=== PATIENT | female | born 1985 | race Caucasian/White ===

== ENCOUNTER 2017-08-04 11:54 | Emergency (ER) | payer SELFPAY ==
[~2017-08-04] VITALS: Ht 167.6 cm; Wt 62.0 kg
[2017-08-04 12:02] VITALS: BP 98/57; PULSE 83; RESP 16; TEMP 98.2; O2SAT 99
[2017-08-04] MEDS ORDERED: KEPP10002 PO (12:16)
[2017-08-04] MEDS ORDERED: levETIRAcetam 500 MG TAB PO ONE (13:00)
[2017-08-04] MEDS ORDERED: ACETAMINOPHEN/HYDROcodone 325 MG/5 MG TAB PO ONE (13:00)
[2017-08-04] MEDS ORDERED: LORazepam 0.5 MG TAB PO ONE (13:00)
[2017-08-04] MEDS ORDERED: TETANUS/DIPHTHERIA TOXOID ADULT 0.5 ML VIAL IM ONE (13:00)
[2017-08-04] MEDS ORDERED: levETIRAcetam INJ 500 MG in SODIUM CHLORIDE 0.9% INJ 100 ML IV ONE (13:00)
--- NOTE | 2017-08-04 13:04 | PD ---
HPI Chief Complaint: Seizure Time Seen by Provider: 12:53 Travel History International Travel<30 days: No Contact w/Intl Traveler<30days: No Traveled to known affect area: No History of Present Illness HPI This patient has history of epilepsy and takes Keppra. She reports compliance. She reports having a seizure at approximately 1 AM last night. She had a second seizure at around 10 AM today. She hit her chin during the seizure but no head injury otherwise. Her neck feels fine. She denies neurologic complaint. She no longer follows with the neurologist and her primary physician maintains her Keppra. Denies drug abuse. No fever. Symptoms severity is moderate. No alleviating factors. No exacerbating factors. PFSH Past Medical History Immunizations Current: Yes Seizures: Yes ?: Not LMP: 1-2 WEEKS AGO PER PT Past Surgical History Surgical History: No Previous Surgery Social History Alcohol Use: No Tobacco Use: No (NEVER) Substance Use: No Allergies-Medications (Allergen,Severity, Reaction): Coded Allergies: No Known Allergies (Verified , 08/04/17) Reported Meds & Prescriptions Reported Meds & Active Scripts Active Reported Keppra (Levetiracetam) 1,000 Mg Tab 500 Mg PO BID Review of Systems General / Constitutional: No: Fever Eyes: No: Visual changes HENT: Positive: Headaches Cardiovascular: No: Chest Pain or Discomfort Respiratory: No: Shortness of Breath Gastrointestinal: No: Abdominal Pain Genitourinary: No: Dysuria Musculoskeletal: No: Pain Skin: No Rash Neurologic: Positive: Seizures, No: Weakness Psychiatric: No: Depression Endocrine: No: Polydipsia Hematologic/Lymphatic: No: Easy Bruising Physical Exam Narrative GENERAL: Well-nourished, well-developed patient in no apparent distress. SKIN: Focused skin assessment reveals no rash and nodules. Skin is Warm and dry. HEAD: Atraumatic. Normocephalic. EYES: Pupils equal and round. No scleral icterus. No injection or drainage. ENT: No nasal bleeding or discharge. Mucous membranes pink and moist. Abrasion to the chin without bony tenderness or deformity. NECK: Trachea midline. No JVD. No midline tenderness CARDIOVASCULAR: Regular rate and rhythm. No murmur appreciated. RESPIRATORY: No accessory muscle use. Clear to auscultation. Breath sounds equal bilaterally. GASTROINTESTINAL: Abdomen soft, non-tender, nondistended. Hepatic and splenic margins not palpable. MUSCULOSKELETAL: No obvious deformities. No clubbing. No cyanosis. No edema. NEUROLOGICAL: Awake and alert. No obvious cranial nerve deficits. Motor grossly within normal limits. Normal speech. PSYCHIATRIC: Appropriate mood and affect; insight and judgment normal. Data Data Last Documented VS Vital Signs Date Time Temp Pulse Resp B/P (MAP) Pulse Ox O2 Delivery O2 Flow Rate FiO2 08/04/17 14:02 83 16 107/40 (62) 98 Room Air 08/04/17 12:02 98.2 Orders Orders Iv Access Insert/Monitor (08/04/17 12:58) Complete Blood Count With Diff (08/04/17 12:58) Basic Metabolic Panel (Bmp) (08/04/17 12:58) Beta Hcg (Quant/Titer) (08/04/17 12:58) Levetiracetam Inj (Keppra Inj) (08/04/17 13:00) Levetiracetam (Keppra) (08/04/17 13:00) Acetamin-Hydrocod 325-5 Mg ([place] 5-325 (08/04/17 13:00) Lorazepam (Ativan) (08/04/17 13:00) Tetanus/Diphtheria Tox Adult (Tetanus/Di (08/04/17 13:00) Labs Laboratory Tests Test 08/04/17 13:35 White Blood Count 12.8 TH/MM3 Red Blood Count 4.49 MIL/MM3 Hemoglobin 13.1 GM/DL Hematocrit 39.0 % Mean Corpuscular Volume 86.9 FL Mean Corpuscular Hemoglobin 29.1 PG Mean Corpuscular Hemoglobin Concent 33.5 % Red Cell Distribution Width 12.4 % Platelet Count 183 TH/MM3 Mean Platelet Volume 9.2 FL Neutrophils (%) (Auto) 79.8 % Lymphocytes (%) (Auto) 10.9 % Monocytes (%) (Auto) 5.1 % Eosinophils (%) (Auto) 0.3 % Basophils (%) (Auto) 3.9 % Neutrophils # (Auto) 10.2 TH/MM3 Lymphocytes # (Auto) 1.4 TH/MM3 Monocytes # (Auto) 0.7 TH/MM3 Eosinophils # (Auto) 0.0 TH/MM3 Basophils # (Auto) 0.5 TH/MM3 CBC Comment DIFF FINAL Differential Comment Blood Urea Nitrogen 11 MG/DL Creatinine 0.64 MG/DL Random Glucose 77 MG/DL Calcium Level 8.4 MG/DL Sodium Level 137 MEQ/L Potassium Level 3.8 MEQ/L Chloride Level 106 MEQ/L Carbon Dioxide Level 24.0 MEQ/L Anion Gap 7 MEQ/L Estimat Glomerular Filtration Rate 109 ML/MIN Human Chorionic Gonadotropin, Quant LESS THAN 1 MIU/ML MDM Medical Decision Making Medical Screen Exam Complete: Yes Emergency Medical Condition: Yes Medical Record Reviewed: Yes Differential Diagnosis Breakthrough seizure, noncompliance, electrolyte abnormality, syncope Narrative Course I have reviewed the patient's electronic medical record. Patient at this time is neurologically intact IV placed I gave her 500 g IV Keppra +500 mg oral dose I gave her a small dose of Ativan and 1 pain pill Patient always gets headache after a seizure and this feels the same as that CBC is normal Metabolic profile is normal Extended cardiac monitoring reveals sinus rhythm without ectopy I observed her for close to 3 hours and is been no recurrent seizure activity. Stable for outpatient follow-up She will call her physician tomorrow for follow-up and any medication change recommendations. Diagnosis Primary Impression: Breakthrough seizure Additional Instructions: The patient was advised to follow up with their physician and return if they worsen. Med/Other Pt SpecificInfo: Other Disposition: 01 DISCHARGE HOME Condition: Stable Clyde Montague MD Aug 04, 2017 13:04
[2017-08-04 13:42] LABS: AUTOMATED NEUTROPHIL # 10.2 TH/MM3 (1.8-7.7); BASOPHIL # 0.5 TH/MM3 (0-0.2); BASOPHIL % 3.9 % (0.0-2.0); EOSINOPHIL % 0.3 % (0.0-4.0); LYMPH % 10.9 % (9.0-44.0); LYMPHOCYTE # 1.4 TH/MM3 (1.0-4.8); MEAN CELL VOLUME 86.9 FL (80.0-100.0); MEAN CORPUSCULAR HEMOGLOBIN 29.1 PG (27.0-34.0); MEAN CORPUSCULAR HGB CONC 33.5 % (32.0-36.0); MONO % 5.1 % (0.0-8.0); NEUT % 79.8 % (16.0-70.0); PLATELET COUNT 183 TH/MM3 (150-450); RED BLOOD COUNT 4.49 MIL/MM3 (4.00-5.30); RED CELL DISTRIBUTION WIDTH 12.4 % (11.6-17.2); WHITE BLOOD COUNT 12.8 TH/MM3 (4.0-11.0)
[2017-08-04 13:44] LABS: HEMO FLAGS DIFF FINAL
[2017-08-04 13:50] LABS: CHLORIDE 106 MEQ/L (98-107); POTASSIUM 3.8 MEQ/L (3.5-5.1); SODIUM (NA) 137 MEQ/L (136-145)
[2017-08-04 13:53] LABS: ANION GAP 7 MEQ/L (5-15); BLOOD UREA NITROGEN 11 MG/DL (7-18)
[2017-08-04 13:56] LABS: GLOMERULAR FILTRATION RATE 109 ML/MIN (>89)
[2017-08-04 14:01] LABS: BETA HCG QUANT LESS THAN 1 MIU/ML (0-5)
[2017-08-04 14:02] VITALS: BP 107/40; PULSE 83; RESP 16; O2SAT 98
== END 2017-08-04 15:39 | disposition home or self-care (01) ==
LOC: PHED 11:54
DX: G40.909 Epilepsy, unspecified, not intractable, without status epilepticus (principal)
CPT/HCPCS: 80048; 84702; 85025; 90471; 90714; 96365; 96366; 99284; J1953

== ENCOUNTER 2017-08-22 08:55 | Emergency (ER) | payer SELFPAY ==
[~2017-08-22 08:55] MED LIST: KEPP10002 PO
[2017-08-22 09:08] VITALS: BP 119/80; PULSE 105; RESP 18; TEMP 98.5; O2SAT 100
--- NOTE | 2017-08-22 09:12 | PD ---
HPI Chief Complaint: Seizure Time Seen by Provider: 09:05 Travel History International Travel<30 days: No Contact w/Intl Traveler<30days: No Traveled to known affect area: No History of Present Illness HPI This 32-year-old female had a seizure. She has a history of seizures since she was 14 years old area she takes Keppra thousand milligrams twice a day. She's been told they're stress-induced. She had a breakthrough seizure in August first of this year. Her neighbor witnessed the seizure today. She says that she got pale and fell forward and started having tonic-clonic movements. Evac was called. The patient is having some pain in her jaw and has lost 2 of her upper front teeth. She has no other injury. She is not sure whether she took her Keppra today. She also has a history of OCD PFSH Past Medical History Immunizations Current: Yes Seizures: Yes ?: Not LMP: started today Social History Alcohol Use: No Tobacco Use: No (NEVER) Substance Use: No Allergies-Medications (Allergen,Severity, Reaction): Coded Allergies: No Known Allergies (Verified , 08/22/17) Reported Meds & Prescriptions Reported Meds & Active Scripts Active Reported Keppra (Levetiracetam) 1,000 Mg Tab 1,000 Mg PO BID Review of Systems General / Constitutional: No: Fever, Chills Eyes: No: Diploplia, Blurred Vision HENT: Positive: Dental Difficulties, No: Headaches, Vertigo Cardiovascular: No: Chest Pain or Discomfort, Palpitations Respiratory: No: Cough, Shortness of Breath Gastrointestinal: No: Nausea Genitourinary: No: Urgency, Frequency Musculoskeletal: No: Myalgias, Arthralgias Skin: No Rash, No Itching Neurologic: No: Weakness, Dizziness Endocrine: No: Heat Intolerance, Cold Intolerance Hematologic/Lymphatic: No: Easy Bruising Physical Exam Narrative GENERAL: Well-developed female SKIN: Focused skin assessment warm/dry. HEAD: Atraumatic. Normocephalic. EYES: Pupils equal and round. No scleral icterus. No injection or drainage. ENT: No nasal bleeding or discharge. Mucous membranes pink and moist. The right lateral incisor has been avulsed. The right central incisor is very loose but present. The left central incisor is broken and appears to be intruded NECK: Trachea midline. No JVD. CARDIOVASCULAR: Regular rate and rhythm. No murmur appreciated. RESPIRATORY: No accessory muscle use. Clear to auscultation. Breath sounds equal bilaterally. GASTROINTESTINAL: Abdomen soft, non-tender, nondistended. Hepatic and splenic margins not palpable. MUSCULOSKELETAL: No obvious deformities. No clubbing. No cyanosis. No edema. NEUROLOGICAL: Awake and alert. No obvious cranial nerve deficits. Motor grossly within normal limits. Normal speech. PSYCHIATRIC: Patient is extremely anxious Data Data Last Documented VS Vital Signs Date Time Temp Pulse Resp B/P (MAP) Pulse Ox O2 Delivery O2 Flow Rate FiO2 08/22/17 09:08 98.5 105 18 119/80 (93) [address] Brain W/O Iv Contrast(Rout) (08/22/17 09:05) Ct Facial Bones W/O Iv Cont (08/22/17 09:05) Levetiracetam (Keppra) (08/22/17 09:30) MDM Medical Decision Making Medical Screen Exam Complete: Yes Emergency Medical Condition: Yes Medical Record Reviewed: Yes Differential Diagnosis Differential includes breakthrough seizure, dental trauma, jaw fracture, head trauma Narrative Course CT of the head has been read as negative. CT of the facial bones is also read as negative. On my evaluation of the facial bone films it does appear that the left central incisor is intruded Diagnosis Primary Impression: Seizure Additional Impression: Dental trauma Qualified Codes: S09.93XA - Unspecified injury of face, initial encounter Additional Instructions: follow up with dentist Scripts Hydrocodone-Acetaminophen (Lortab) 5-325 Mg Tab 1 TAB PO Q4H Y for PAIN, #20 TAB 0 Refills Prov: Bandar Mcknight MD 08/22/17 Penicillin V Potassium (Penicillin V Potassium) 500 Mg Tab 500 MG PO Q6H for Infection for 7 Days, #28 TAB 0 Refills Prov: Bandar Mcknight MD 08/22/17 Disposition: 01 DISCHARGE HOME Condition: Stable Bandar Mcknight MD Aug 22, 2017 09:12
[2017-08-22] MEDS ORDERED: levETIRAcetam 500 MG TAB PO ONE (09:30)
--- NOTE | 2017-08-22 09:33 | RADRPT ---
EXAM DATE/TIME: 08/22/2017 09:21 [facility] COMPARISON: No previous studies available for comparison. INDICATIONS : Trauma, fall. Seizure. RADIATION DOSE: 59.83 CTDIvol (mGy) MEDICAL HISTORY : Seizures. SURGICAL HISTORY : None. ENCOUNTER: Initial ACUITY: 1 day PAIN SCALE: 10/10 LOCATION: cranial TECHNIQUE: Multiple contiguous axial images were obtained of the head. Using automated exposure control and adj ustment of the mA and/or kV according to patient size, radiation dose was kept as low as reasonably a chievable to obtain optimal diagnostic quality images. DICOM format image data is available electro nically for review and comparison. FINDINGS: CEREBRUM: The ventricles are normal for age. No evidence of midline shift, mass lesion, hemorrhage or acute in farction. No extra-axial fluid collections are seen. POSTERIOR FOSSA: The cerebellum and brainstem are intact. The 4th ventricle is midline. The cerebellopontine angle i s unremarkable. EXTRACRANIAL: The visualized portion of the orbits is intact. SKULL: The calvaria is intact. No evidence of skull fracture. CONCLUSION: Normal examination for a patient of this age. Mynor Bridges MD on August 22, 2017 at 9:29 Board Certified Radiologist. This report was verified electronically.
--- NOTE | 2017-08-22 09:51 | RADRPT ---
EXAM DATE/TIME: 08/22/2017 09:21 [facility] COMPARISON: No previous studies available for comparison. INDICATIONS : Trauma, fall. Seizure. Jaw pain, with missing front tooth. RADIATION DOSE: 34.84 CTDIvol (mGy) MEDICAL HISTORY : Seizures. SURGICAL HISTORY : None. ENCOUNTER: Initial ACUITY: 1 day PAIN SCORE: 10/10 LOCATION: facial TECHNIQUE: Volumetric scanning of the facial bones was performed. Using automated exposure control and adjustme nt of the mA and/or kV according to patient size, radiation dose was kept as low as reasonably achiev able to obtain optimal diagnostic quality images. DICOM format image data is available electronicall y for review and comparison. FINDINGS: ORBITS: The orbital and infraorbital osseous structures are intact. The retroconal structures have a normal configuration. No radiopaque foreign bodies are seen. NASAL BONE: The nasal bone and maxillary spine are intact ZYGOMATIC ARCHES: Symmetric without evidence of fracture. SINUSES: The maxillary, ethmoid and frontal sinuses are intact. There is mild chronic sinus disease in the max illary sinus on the right side. No air-fluid levels seen. NASAL CAVITY: The nasal septum is intact and midline. The lacrimal ducts are intact. SOFT TISSUES: No radiopaque foreign bodies seen. No soft-tissue swelling is seen. INTRACRANIAL: No intracranial air seen. CRIBIFORM PLATE: Grossly intact. CONCLUSION: 1. No acute bony fracture. 2. Mild chronic sinus disease in the right maxillary sinus. Mynor Bridges MD on August 22, 2017 at 9:48 Board Certified Radiologist. This report was verified electronically.
[2017-08-22] MEDS ORDERED: HYDR-3533 PO (09:59)
[2017-08-22] MEDS ORDERED: PENI500T PO (09:59)
[2017-08-22] MEDS ORDERED: ACETAMINOPHEN/HYDROcodone 325 MG/5 MG TAB PO ONE (10:15)
== END 2017-08-22 10:55 | disposition home or self-care (01) ==
LOC: PHED 08:55
DX: R56.9 Unspecified convulsions (principal); S09.93XA Unspecified injury of face, initial encounter; W19.XXXA Unspecified fall, initial encounter
CPT/HCPCS: 70450; 70486; 99285

== ENCOUNTER 2018-02-03 11:04 | Emergency (ER) | payer SELFPAY ==
[~2018-02-03] VITALS: Ht 167.6 cm; Wt 61.0 kg
[~2018-02-03 11:04] MED LIST changes: +HYDR-3533 PO; +PENI500T PO
[2018-02-03 11:16] VITALS: BP 110/74; PULSE 96; RESP 18; TEMP 99.3; O2SAT 99
[2018-02-03] MEDS ORDERED: KEPP750T PO (11:31)
--- NOTE | 2018-02-03 11:50 | PD ---
HPI Chief Complaint: Fall Time Seen by Provider: 11:45 Travel History International Travel<30 days: No Contact w/Intl Traveler<30days: No Traveled to known affect area: No History of Present Illness HPI 32-year-old female patient with history of seizures currently on Keppra, presents to the ER today because she states she had a seizure, complains of trauma to her face, left shoulder. She denies any incontinence or any other injuries. She states that her left shoulder has been hurting her for several weeks after she had to lift something at work, and states that she has problems sometimes with intermittent dislocation of her shoulder. She states that she did hit it today. Modifying Factors: None Associated Signs & Symptoms: Seizure, left shoulder injury, facial injuries Risk Factors: Previous history of seizures PFSH Past Medical History Diminished Hearing: No Immunizations Current: Yes Seizures: Yes Tetanus Vaccination: < 5 Years Influenza Vaccination: No ?: Unknown LMP: 01/06/18 Social History Alcohol Use: Yes (occ) Tobacco Use: No (NEVER) Substance Use: No Allergies-Medications (Allergen,Severity, Reaction): Coded Allergies: No Known Allergies (Verified Adverse Reaction, Unknown, 02/03/18) Reported Meds & Prescriptions Reported Meds & Active Scripts Active Reported Keppra (Levetiracetam) 750 Mg Tab 750 Mg PO TID Review of Systems Except as stated in HPI: all other systems reviewed are Neg Physical Exam Narrative GENERAL: Well-developed young female patient currently in mild distress. Awake and oriented 3. SKIN: Focused skin assessment warm/dry. HEAD: Notable ecchymosis and edema over the nasal bridge and right eyebrow area , tender to palpation. Normocephalic. EYES: Pupils equal and round. No scleral icterus. No injection or drainage. ENT: No nasal bleeding or discharge. Mucous membranes pink and moist. NECK: Trachea midline. No JVD. Supple. CARDIOVASCULAR: Regular rate and rhythm. No murmur appreciated. RESPIRATORY: No accessory muscle use. Clear to auscultation. Breath sounds equal bilaterally. GASTROINTESTINAL: Abdomen soft, non-tender, nondistended. Hepatic and splenic margins not palpable. EXTREMITIES: No clubbing, cyanosis, or edema. No joint tenderness, effusion, or edema noted. mildly tender palpation of the light shoulder area with no significant signs of bony injuries. MUSCULOSKELETAL: No obvious deformities. No clubbing. No cyanosis. No edema. NEUROLOGICAL: Awake and alert. No obvious cranial nerve deficits. Motor grossly within normal limits. Normal speech. PSYCHIATRIC: Appropriate mood and affect; insight and judgment normal. Data Data Last Documented VS Vital Signs Date Time Temp Pulse Resp B/P (MAP) Pulse Ox O2 Delivery O2 Flow Rate FiO2 02/03/18 13:01 80 18 108/62 (77) 100 Room Air 02/03/18 11:[address] Facial Bones W/O Iv Cont (02/03/18 11:45) Shoulder, Complete (>2vws) (02/03/18 11:45) MDM Medical Decision Making Medical Screen Exam Complete: Yes Emergency Medical Condition: Yes Medical Record Reviewed: Yes Interpretation(s) Last 24 hours Impressions Shoulder X-Ray 02/03/18 1145 Signed Impressions: Service Date/Time: Saturday, February 03, 2018 11:48 - CONCLUSION: Age- indeterminate Hill-Sachs lesion of the humeral head suspected. No displaced fracture demonstrated. Otherwise chronic findings as above. Ricardo Lamb MD Differential Diagnosis Breakthrough seizure/contusions versus fractures Narrative Course Shoulder x-ray did not show any signs of acute fractures or dislocations. She does have a Hill-Sachs deformity which could explain why the patient feels like she is having intermittent dislocation. CAT scan did not show any signs of acute fractures of the face. At this point, my plan would be to release her with follow-up to primary care physician. She can follow-up with orthopedics regarding her shoulder issues which are more chronic at this point. Return for any worsening in pain, or new symptoms as needed. The plan has been discussed with her and she states understanding. Diagnosis Primary Impression: Seizure Additional Impressions: Facial contusion Shoulder contusion Med/Other Pt SpecificInfo: Prescription(s) given Scripts Ibuprofen (Ibuprofen) 600 Mg Tab 600 MG PO Q6H Y for Pain/Inflammation, #20 TAB 0 Refills Prov: Brianna Mena MD 02/03/18 Disposition: 01 DISCHARGE HOME Condition: Stable Brianna Mena MD Feb 03, 2018 11:50
--- NOTE | 2018-02-03 12:27 | RADRPT ---
EXAM DATE/TIME: 02/03/2018 11:48 [facility] COMPARISON: No previous studies available for comparison. INDICATIONS : Left shoulder pain post seizure MEDICAL HISTORY : seizures SURGICAL HISTORY : None. ENCOUNTER: Initial ACUITY: 1 day PAIN SCORE: 10/10 LOCATION: Left upper extremity FINDINGS: Suspected shallow Hill-Sachs lesion in the humeral head, age indeterminate.. High riding humeral head , often seen in setting of chronic full-thickness rotator cuff tear. There is an approximately 1 cm a rakesh of calcific tendinitis of the distal infraspinatus. 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 Small osteochondral bodi es are suspected in the axillary recess of the glenohumeral joint. CONCLUSION: Age-indeterminate Hill-Sachs lesion of the humeral head suspected. No displaced fracture demonstrated . Otherwise chronic findings as above. Ricardo Lamb MD on February 03, 2018 at 12:24 Board Certified Radiologist. This report was verified electronically.
--- NOTE | 2018-02-03 12:55 | RADRPT ---
EXAM DATE/TIME: 02/03/2018 12:26 [facility] COMPARISON: CT FACIAL BONES W/O CONTRAST, August 22, 2017, 9:21. INDICATIONS : Seizure. Complains of frontal and nasal pain from fall. RADIATION DOSE: 29.88 CTDIvol (mGy) MEDICAL HISTORY : Seizures. SURGICAL HISTORY : None. ENCOUNTER: Initial ACUITY: 1 day PAIN SCORE: 5/10 LOCATION: facial TECHNIQUE: Volumetric scanning of the facial bones was performed. Using automated exposure control and adjustme nt of the mA and/or kV according to patient size, radiation dose was kept as low as reasonably achiev able to obtain optimal diagnostic quality images. DICOM format image data is available electronicall y for review and comparison. FINDINGS: ORBITS: The orbital and infraorbital osseous structures are intact. The retroconal structures have a normal configuration. No radiopaque foreign bodies are seen. NASAL BONE: The nasal bone and maxillary spine are intact ZYGOMATIC ARCHES: Symmetric without evidence of fracture. SINUSES: There is a mucus retention cyst in the right side of the frontal sinus. The remainder the sinuses are clear. NASAL CAVITY: There is deviation of the nasal septum towards the left. SOFT TISSUES: No foreign bodies are seen. There is soft tissue swelling along the right side of the bridge of the n ose. INTRACRANIAL: No intracranial air seen. CRIBIFORM PLATE: Grossly intact. CONCLUSION: 1. No acute bony fracture identified. 2. Soft tissue swelling along the right side of nose. 3. Deviation of the nasal septum towards the left. 4. Small mucus retention cyst in the right side of frontal sinus. Mohinder Mendenhall MD on February 03, 2018 at 12:36 Board Certified Radiologist. This report was verified electronically.
[2018-02-03 13:01] VITALS: BP 108/62; PULSE 80; RESP 18; O2SAT 100
[2018-02-03] MEDS ORDERED: IBUP-232 PO (13:06)
== END 2018-02-03 13:32 | disposition home or self-care (01) ==
LOC: PHED 11:04
DX: R56.9 Unspecified convulsions (principal); S00.83XA Contusion of other part of head, initial encounter; S40.012A Contusion of left shoulder, initial encounter; X58.XXXA Exposure to other specified factors, initial encounter
CPT/HCPCS: 70486; 73030

== ENCOUNTER 2018-03-09 12:42 | Emergency (ER) | payer SELFPAY ==
[2018-03-09] MEDS: LORazepam 1 MG TAB PO (13:15)
== END 2018-03-09 16:12 | disposition home or self-care (01) ==
LOC: PHED 12:42
DX: G40.909 Epilepsy, unspecified, not intractable, without status epilepticus (principal)
CPT/HCPCS: 99283